=== PATIENT | female | born 1980 | race Caucasian/White ===

== ENCOUNTER 2017-06-21 19:24 | Emergency (ER) | payer OTHER ==
[~2017-06-21] VITALS: Ht 157.5 cm; Wt 68.0 kg
[~2017-06-21 19:24] MED LIST: MUCINEX D TABL1 EACH PO; NOHOMEMEDICATIONS; ZPAK PO
[2017-06-21 19:34] VITALS: BP 98/66
[2017-06-21] MEDS ORDERED: PENICILLIN VK500 MG PO (19:40)
[2017-06-21] MEDS ORDERED: IBUPROFEN 600600 M1 PO (19:40)
[2017-06-21] MEDS ORDERED: NORCO 5-325 TA1 EACH PO (19:41)
== END 2017-06-21 19:51 | disposition home or self-care (01) ==
LOC: M.ERS 19:24
DX: K08.89 Other specified disorders of teeth and supporting structures (principal)

== ENCOUNTER 2018-03-09 21:01 | Emergency (ER) | payer OTHER ==
[~2018-03-09] VITALS: Ht 157.5 cm; Wt 68.0 kg
[~2018-03-09 21:01] MED LIST changes: +IBUPROFEN 600600 M1 PO; +NORCO 5-325 TA1 EACH PO; +PENICILLIN VK500 MG PO
[2018-03-09] MEDS ORDERED: ZOLOFT25 MG (21:08)
[2018-03-09] MEDS ORDERED: FLEXERIL PO (21:59)
[2018-03-09] MEDS ORDERED: NORCO 5-325 TA1 EACH PO (21:59)
[2018-03-09 22:09] VITALS: BP 106/68
== END 2018-03-09 22:11 | disposition home or self-care (01) ==
LOC: M.ERS 21:01
DX: M43.6 Torticollis (principal); N80.9 Endometriosis, unspecified; F17.210 Nicotine dependence, cigarettes, uncomplicated; Z98.890 Other specified postprocedural states

== ENCOUNTER 2019-07-13 11:52 | Emergency (ER) | payer OTHER ==
[~2019-07-13] VITALS: Ht 157.5 cm; Wt 69.4 kg
[~2019-07-13 11:52] MED LIST changes: +FLEXERIL PO; +ZOLOFT25 MG
[2019-07-13 12:26] LABS: ABSOLUTE EOSINOPHILS 0.3 thou/uL (0.0-0.7); ABSOLUTE LYMPHOCYTES 3.5 thou/uL (0.8-5.3); ABSOLUTE MONOCYTES 0.6 thou/uL (0.0-1.2); BASOPHILS 0.2 %; EOSINOPHILS 3.7 %; HEMATOCRIT 41.6 % (37.0-47.0); HEMOGLOBIN 14.5 gm/dL (12.0-15.0); LYMPHOCYTES 37.2 %; MCH 33.3 pg (26.0-34.0); MCHC 34.8 g/dL (28.0-37.0); MCV 95.8 fL (80.0-100.0); MONOCYTES 5.9 %; MPV 9.5 fl. (7.2-11.1); NUCLEATED RBCS 0 /100WBC; PLATELET COUNT* 254 thou/uL (150-400); RBC 4.35 mil/uL (4.20-5.00); RDW-CV 12.8 % (10.5-14.5); WBC 9.4 thou/uL (4.0-11.0)
[2019-07-13 12:28] LABS: URINE BILIRUBIN NEGATIVE (Negative); URINE BLOOD NEGATIVE (Negative); URINE CLARITY CLEAR; URINE COLOR YELLOW; URINE GLUCOSE-RANDOM NEGATIVE (Negative); URINE KETONES NEGATIVE (Negative); URINE LEUKOCYTES-REFLEX 1+ (Negative); URINE NITRITE-REFLEX NEGATIVE (Negative); URINE PROTEIN NEGATIVE (Negative); URINE SPECIFIC GRAVITY 1.015 (1.005-1.030); URINE UROBILINOGEN 0.2 E.U./dl (0.2-1.0)
[2019-07-13 12:44] LABS: CALCIUM 8.2 mg/dL (8.5-10.1); CREATININE 0.7 mg/dL (0.6-1.3); POTASSIUM 3.7 mmol/L (3.5-5.1)
[2019-07-13 12:48] LABS: ALBUMIN 3.7 g/dL (3.4-5.0); TOTAL BILIRUBIN 0.5 mg/dL (<0.1-1.0); TOTAL PROTEIN 7.2 g/dL (6.4-8.2)
[2019-07-13 12:51] LABS: BACTERIA-REFLEX None Seen /HPF (None Seen); CASTS None Seen /LPF (None Seen); CRYSTALS None Seen /LPF (None Seen); MUCUS None Seen strn/LPF (None Seen); SQUAMOUS >10 Many /LPF (0-3); URINE RBC 0-2 Rare /HPF (0-2); URINE WBC-REFLEX 0-5 Rare /HPF (0-5)
[2019-07-13] MEDS ORDERED: ONDANSETRON HCL4 M2 PO (13:57)
[2019-07-13] MEDS ORDERED: BENTYL 20 MG TA20 M1 PO (13:57)
[2019-07-13 14:43] VITALS: BP 116/62
== END 2019-07-13 14:45 | disposition home or self-care (01) ==
LOC: M.ERS 11:52
PROVIDERS: Nurse Practitioner Family
DX: K52.9 Noninfective gastroenteritis and colitis, unspecified (principal); K80.20 Calculus of gallbladder without cholecystitis without obstruction; D25.9 Leiomyoma of uterus, unspecified; F17.210 Nicotine dependence, cigarettes, uncomplicated; Z98.51 Tubal ligation status

== ENCOUNTER 2020-02-25 13:52 | Emergency (ER) | payer OTHER ==
[~2020-02-25] VITALS: Ht 157.5 cm; Wt 72.6 kg
[~2020-02-25 13:52] MED LIST changes: +BENTYL 20 MG TA20 M1 PO; +ONDANSETRON HCL4 M2 PO
[2020-02-25] MEDS ORDERED: NORCO 5-325 TA1 EAC2 PO (14:17)
[2020-02-25] MEDS ORDERED: BACTRIM DS TAB1 EACH PO (14:17)
[2020-02-25] MEDS ORDERED: KEFLEX500 M1 PO (14:17)
[2020-02-25] MEDS ORDERED: IBUPROFEN 800800 M1 PO (14:17)
[2020-02-25 15:17] VITALS: BP 104/60
== END 2020-02-25 15:17 | disposition home or self-care (01) ==
LOC: M.ERS 13:52
DX: L02.415 Cutaneous abscess of right lower limb (principal); N80.9 Endometriosis, unspecified; Z86.14 Personal history of Methicillin resistant Staphylococcus aureus infection; Z98.51 Tubal ligation status

== ENCOUNTER 2020-04-21 18:48 | Emergency (ER) | payer OTHER ==
[~2020-04-21] VITALS: Ht 157.5 cm; Wt 72.6 kg
[~2020-04-21 18:48] MED LIST changes: +BACTRIM DS TAB1 EACH PO; +IBUPROFEN 800800 M1 PO; +KEFLEX500 M1 PO; +NORCO 5-325 TA1 EAC2 PO
[2020-04-21 19:02] VITALS: BP 154/76
[2020-04-21] MEDS ORDERED: CENTANY30 GM TOP (19:12)
[2020-04-21] MEDS ORDERED: DOXYCYCLINE 10100 MG PO (19:12)
== END 2020-04-21 19:20 | disposition home or self-care (01) ==
LOC: M.ERS 18:48
DX: L02.416 Cutaneous abscess of left lower limb (principal); N80.9 Endometriosis, unspecified; F17.210 Nicotine dependence, cigarettes, uncomplicated; Z98.51 Tubal ligation status

== ENCOUNTER 2020-07-19 18:54 | Emergency (ER) | payer OTHER ==
[~2020-07-19] VITALS: Ht 157.5 cm; Wt 77.1 kg
[~2020-07-19 18:54] MED LIST changes: +CENTANY30 GM TOP; +DOXYCYCLINE 10100 MG PO
[2020-07-19] MEDS ORDERED: VOLTAREN GEL 1100 G2 TOP (20:00)
[2020-07-19 20:10] VITALS: BP 99/58
== END 2020-07-19 20:11 | disposition home or self-care (01) ==
LOC: M.ERS 18:54
DX: M25.562 Pain in left knee (principal); M79.89 Other specified soft tissue disorders; R20.0 Anesthesia of skin; Z98.890 Other specified postprocedural states; Z98.51 Tubal ligation status; Z86.14 Personal history of Methicillin resistant Staphylococcus aureus infection